=== PATIENT | male | born 1965 ===

== ENCOUNTER 2017-01-25 14:29 | Inpatient (IN) ==
[2017-01-25] MEDS ORDERED: ONDANSETRON 4 MG/2 ML VIAL IV PRN (17:57)
[2017-01-25 18:27] LABS: Basophils % 0.3 % (0.0-0.8); Eosinophils % 0.5 % (0.00-10.9); Hematocrit 44.7 VOL% (42.0-52.0); Hemoglobin 16.2 GM/DL (14.0-18.0); Immature Granulocytes % 0.3 %; Immature Granulocytes Absolute 0.02 #; Lymphocytes # 2.8 10*3/uL (1.4-4.0); Lymphocytes % 36.3 % (21.2-54.2); Mean Corpuscular HGB Conc 36.2 GM/DL (32-36); Mean Corpuscular Hemoglobin 34 PG (27-34); Mean Corpuscular Volume 92.9 FL (87-102); Mean Platelet Volume 12.8 FL (9.6-12.0); Monocytes # 1.3 10*3/uL (0.11-0.8); Monocytes % 16.8 % (1.7-12.7); Neutrophils # 3.5 10*3/uL (1.4-7.4); Neutrophils % 45.8 % (38.7-73.9); Red Blood Count 4.81 MC/CUMM (3.8-5.5); Red Cell Distribution Width 14.8 % (9.3-17.3); White Blood Count 7.6 T/CUMM (4-12)
[2017-01-25] MEDS ORDERED: ACETAMINOPHEN 325 MG TABLET PO PRN (18:46)
[2017-01-25 18:54] LABS: Albumin 2.7 G/DL (3.4-5.0); Bilirubin,Total 1.6 MG/DL (0.2-1.0); Calcium 7.7 MG/DL (8.5-10.1); Osmolality,Calculated 287.1 MOS/KG (273-304); Potassium 4.1 MMOL/L (3.5-5.1); Total Protein 6.5 G/DL (6.4-8.3)
[2017-01-25 18:59] LABS: Platelet Count 86 T/CUMM (130-400)
[2017-01-25] MEDS: RIFAXIMIN 550 MG TABLET PO SCH (20:36)
[2017-01-25] MEDS: LACTULOSE 20 GM/30 ML UDCUP PO SCH (20:36)
[2017-01-25] MEDS: SPIRONOLACTONE 25 MG TABLET PO SCH (20:37)
[2017-01-26] MEDS ORDERED: DICYCLOMINE 10 MG CAPSULE PO PRN (01:35)
[2017-01-26 04:20] LABS: Basophils % 0.5 % (0.0-0.8); Eosinophils # 0.1 10*3/uL (0.0-0.87); Eosinophils % 1.2 % (0.00-10.9); Hematocrit 41.4 VOL% (42.0-52.0); Hemoglobin 14.6 GM/DL (14.0-18.0); Immature Granulocytes % 0.4 %; Immature Granulocytes Absolute 0.03 #; Lymphocytes # 2.5 10*3/uL (1.4-4.0); Lymphocytes % 33.8 % (21.2-54.2); Mean Corpuscular HGB Conc 35.3 GM/DL (32-36); Mean Corpuscular Hemoglobin 34 PG (27-34); Mean Corpuscular Volume 96.1 FL (87-102); Mean Platelet Volume 13.3 FL (9.6-12.0); Monocytes # 1.2 10*3/uL (0.11-0.8); Monocytes % 16.8 % (1.7-12.7); Neutrophils # 3.5 10*3/uL (1.4-7.4); Neutrophils % 47.3 % (38.7-73.9); Platelet Count 47 T/CUMM (130-400); Red Blood Count 4.31 MC/CUMM (3.8-5.5); Red Cell Distribution Width 14.6 % (9.3-17.3); White Blood Count 7.4 T/CUMM (4-12)
[2017-01-26 04:58] LABS: Band Neutrophils 1 % (0-10); Lymphocytes 28 % (20-55); Macrocytosis Slight; Segmented Neutrophils 56 % (50-85); Total Cells Counted 100
[2017-01-26 07:04] LABS: Albumin 2.3 G/DL (3.4-5.0); Bilirubin,Total 1.2 MG/DL (0.2-1.0); Calcium 7.7 MG/DL (8.5-10.1); Potassium 4.4 MMOL/L (3.5-5.1); Total Protein 5.6 G/DL (6.4-8.3)
[2017-01-26] MEDS ORDERED: PANTOPRAZOLE 40 MG VIAL IV SCH (09:00)
[2017-01-26] MEDS: LACTULOSE 20 GM/30 ML UDCUP PO SCH (09:37)
[2017-01-26] MEDS: RIFAXIMIN 550 MG TABLET PO SCH ×3 (09:37→23:06)
[2017-01-26] MEDS: FUROSEMIDE 20 MG TABLET PO SCH (09:37)
[2017-01-26] MEDS: THIAMINE 100 MG TABLET PO SCH (09:37)
[2017-01-26] MEDS: SPIRONOLACTONE 25 MG TABLET PO SCH ×3 (09:37→23:06)
[2017-01-26 11:14] LABS: Hematocrit 40.5 VOL% (42.0-52.0); Hemoglobin 14.3 GM/DL (14.0-18.0)
[2017-01-26 11:24] LABS: INR 1.2; PT Patient Result 12.6 SECS; Partial Thromboplastin Time 26.4 SECS (0-40)
[2017-01-26] MEDS ORDERED: SUCCINYLCHOLINE 200 MG/10 ML VIAL ONE (13:01)
[2017-01-26] MEDS ORDERED: PROPOFOL 200 MG/20 ML VIAL IV ONE (13:01)
[2017-01-26] MEDS ORDERED: LIDOCAINE 2% 5 ML VIAL ONE (13:01)
[2017-01-26] MEDS ORDERED: PHENYLEPHRINE 1 MG/10 ML SYRINGE IV ONE (13:01)
[2017-01-26] MEDS ORDERED: fentaNYL 100 MCG/2 ML VIAL ONE (13:02)
[2017-01-26] MEDS ORDERED: ACETAMINOPHEN 500 MG TABLET PO PRN (13:30)
[2017-01-26] MEDS: LACTULOSE 20 GM/30 ML UDCUP NG SCH ×4 (15:06→23:06)
[2017-01-26] MEDS ORDERED: niCARdipine INJ 25 MG in SODIUM CHLORIDE 0.9% 240 ML IV SCH (17:00)
[2017-01-26] MEDS: LORazepam 2 MG/1 ML VIAL IV PRN ×2 (17:28→21:38)
[2017-01-26 18:44] LABS: Apearance,Urine CLEAR (Clear); Bilirubin,Urine Negative (Negative); Blood, Urine Negative (Negative); Glucose,Urine (UA) Negative (Negative); Hyaline Casts,Urine 6 /LPF (0-3); Ketones,Urine Negative (Negative); Mucus,Urine Occasional /LPF (Occasional); Nitrite,Urine Negative (Negative); Protein,Urine Negative; RBC,Urine 1 /HPF (0-4); Squamous Epithelial Cell,Urine Occasional /HPF (0-10); Urine Color Yellow (Yellow); Urine Specific Gravity 1.028 (1.001-1.035); Urine Urobilinogen < 2.0 EU/DL (0.2-1.0); WBC,Urine 1 /HPF (0-6)
[2017-01-26] MEDS: METOCLOPRAMIDE 10 MG/2 ML VIAL IV SCH (18:56)
[2017-01-26] MEDS: PANTOPRAZOLE 40 MG VIAL IV SCH (21:38)
[2017-01-26] MEDS: niCARdipine INJ 50 MG in SODIUM CHLORIDE 0.9% 480 ML IV SCH (22:47)
[2017-01-26] MEDS ORDERED: niCARdipine INJ 50 MG in SODIUM CHLORIDE 0.9% 500 ML IV SCH (23:00)
[2017-01-27] MEDS: METOCLOPRAMIDE 10 MG/2 ML VIAL IV SCH ×4 (00:15→18:21)
[2017-01-27] MEDS: LACTULOSE 20 GM/30 ML UDCUP NG SCH ×6 (02:08→22:42)
[2017-01-27] MEDS: LORazepam 2 MG/1 ML VIAL IV PRN ×3 (02:34→19:40)
[2017-01-27 05:13] LABS: Basophils % 0.4 % (0.0-0.8); Eosinophils # 0.1 10*3/uL (0.0-0.87); Eosinophils % 0.5 % (0.00-10.9); Hemoglobin 12.5 GM/DL (14.0-18.0); Immature Granulocytes % 0.5 %; Immature Granulocytes Absolute 0.06 #; Lymphocytes % 18.3 % (21.2-54.2); Mean Corpuscular HGB Conc 35.7 GM/DL (32-36); Mean Corpuscular Hemoglobin 34 PG (27-34); Mean Corpuscular Volume 94.6 FL (87-102); Monocytes # 2.3 10*3/uL (0.11-0.8); Neutrophils # 6.5 10*3/uL (1.4-7.4); Neutrophils % 59.3 % (38.7-73.9); Red Cell Distribution Width 14.9 % (9.3-17.3)
[2017-01-27 05:27] LABS: Platelet Count 35 T/CUMM (130-400)
[2017-01-27 05:51] LABS: Calcium 7.8 MG/DL (8.5-10.1); Magnesium 1.6 MG/DL (1.8-2.4); Osmolality,Calculated 299.6 MOS/KG (273-304); Potassium 4.2 MMOL/L (3.5-5.1)
[2017-01-27 06:09] LABS: Band Neutrophils 8 % (0-10); Lymphocytes 25 % (20-55); Metamyelocytes 2 %; Myelocytes 6 %; Segmented Neutrophils 57 % (50-85); Total Cells Counted 100
[2017-01-27 06:10] LABS: Anisocytosis 1+; Ovalocytes Few
[2017-01-27 06:11] LABS: Platelet Estimate Decreased
[2017-01-27] MEDS: niCARdipine INJ 50 MG in SODIUM CHLORIDE 0.9% 480 ML IV SCH ×2 (09:35→20:21)
[2017-01-27] MEDS: PANTOPRAZOLE 40 MG VIAL IV SCH ×2 (09:36→22:54)
[2017-01-27] MEDS: RIFAXIMIN 550 MG TABLET PO SCH ×2 (09:37→22:42)
[2017-01-27] MEDS: SPIRONOLACTONE 25 MG TABLET PO SCH ×2 (09:37→22:54)
[2017-01-27] MEDS: THIAMINE 100 MG TABLET PO SCH (09:37)
[2017-01-27] MEDS: FUROSEMIDE 20 MG TABLET PO SCH (09:37)
[2017-01-27] MEDS ORDERED: MAGNESIUM SULF RIDER 4 GM in PREMIX 1 EACH IV ONE (09:47)
[2017-01-27] MEDS: amLODIPine 5 MG TABLET PO SCH (11:31)
[2017-01-28] MEDS: METOCLOPRAMIDE 10 MG/2 ML VIAL IV SCH ×5 (01:13→23:36)
[2017-01-28] MEDS: LORazepam 2 MG/1 ML VIAL IV PRN ×4 (02:18→17:28)
[2017-01-28] MEDS: LACTULOSE 20 GM/30 ML UDCUP NG SCH ×6 (02:21→21:50)
[2017-01-28] MEDS: niCARdipine INJ 50 MG in SODIUM CHLORIDE 0.9% 480 ML IV SCH ×3 (02:29→22:03)
[2017-01-28] MEDS ORDERED: SODIUM CHLORIDE 0.9% 500 ML IV ONE (03:03)
[2017-01-28 06:08] LABS: Basophils # 0.1 10*3/uL (0.0-0.2); Basophils % 0.6 % (0.0-0.8); Eosinophils # 0.1 10*3/uL (0.0-0.87); Hematocrit 33.7 VOL% (42.0-52.0); Hemoglobin 12.1 GM/DL (14.0-18.0); Immature Granulocytes % 0.4 %; Immature Granulocytes Absolute 0.04 #; Lymphocytes % 18.6 % (21.2-54.2); Mean Corpuscular HGB Conc 35.9 GM/DL (32-36); Mean Corpuscular Hemoglobin 35 PG (27-34); Mean Corpuscular Volume 96.3 FL (87-102); Mean Platelet Volume 13.1 FL (9.6-12.0); Monocytes # 1.9 10*3/uL (0.11-0.8); Monocytes % 17.4 % (1.7-12.7); Neutrophils # 6.8 10*3/uL (1.4-7.4); Platelet Count 78 T/CUMM (130-400)
[2017-01-28 06:45] LABS: Calcium 7.4 MG/DL (8.5-10.1); Osmolality,Calculated 310.9 MOS/KG (273-304); Potassium 3.8 MMOL/L (3.5-5.1)
[2017-01-28 06:53] LABS: Band Neutrophils 9 % (0-10); Lymphocytes 13 % (20-55); Myelocytes 2 %; Segmented Neutrophils 68 % (50-85); Total Cells Counted 100
[2017-01-28 06:54] LABS: Anisocytosis 1+; Platelet Estimate Decreased
[2017-01-28] MEDS: SPIRONOLACTONE 25 MG TABLET PO SCH ×2 (08:21→20:21)
[2017-01-28] MEDS: RIFAXIMIN 550 MG TABLET PO SCH ×2 (08:21→20:20)
[2017-01-28] MEDS: PANTOPRAZOLE 40 MG VIAL IV SCH ×2 (08:21→20:20)
[2017-01-28] MEDS: amLODIPine 5 MG TABLET PO SCH (08:21)
[2017-01-28] MEDS: THIAMINE 100 MG TABLET PO SCH (08:21)
[2017-01-28] MEDS: FUROSEMIDE 20 MG TABLET PO SCH (08:21)
[2017-01-28] MEDS: DEXTROSE 5% 1,000 ML IV SCH (14:24)
[2017-01-28] MEDS: PIPERACILLIN/TAZOBACTAM 3,375 MG in SODIUM CHLORIDE 0.9% 100 ML IV SCH ×2 (16:30→23:33)
[2017-01-29] MEDS: LACTULOSE 20 GM/30 ML UDCUP NG SCH ×6 (02:50→21:26)
[2017-01-29] MEDS: DEXTROSE 5% 1,000 ML IV SCH ×3 (02:51→21:26)
[2017-01-29 05:20] LABS: Basophils % 0.5 % (0.0-0.8); Eosinophils # 0.3 10*3/uL (0.0-0.87); Eosinophils % 3.8 % (0.00-10.9); Hematocrit 32.8 VOL% (42.0-52.0); Hemoglobin 11.3 GM/DL (14.0-18.0); Immature Granulocytes % 0.3 %; Immature Granulocytes Absolute 0.02 #; Lymphocytes # 2.2 10*3/uL (1.4-4.0); Lymphocytes % 28.2 % (21.2-54.2); Mean Corpuscular HGB Conc 34.5 GM/DL (32-36); Mean Corpuscular Hemoglobin 34 PG (27-34); Mean Corpuscular Volume 99.1 FL (87-102); Monocytes # 1.4 10*3/uL (0.11-0.8); Monocytes % 18.1 % (1.7-12.7); Neutrophils # 3.9 10*3/uL (1.4-7.4); Neutrophils % 49.1 % (38.7-73.9); Platelet Count 71 T/CUMM (130-400); Red Blood Count 3.31 MC/CUMM (3.8-5.5); Red Cell Distribution Width 15.2 % (9.3-17.3); White Blood Count 7.9 T/CUMM (4-12)
[2017-01-29] MEDS: METOCLOPRAMIDE 10 MG/2 ML VIAL IV SCH ×4 (05:43→23:45)
[2017-01-29 05:54] LABS: Eosinophils 1 % (0-10); Lymphocytes 24 % (20-55); Platelet Estimate Decreased; Segmented Neutrophils 59 % (50-85); Total Cells Counted 100
[2017-01-29 05:55] LABS: Albumin 2.6 G/DL (3.4-5.0); Bilirubin,Total 2.5 MG/DL (0.2-1.0); Calcium 7.5 MG/DL (8.5-10.1); Osmolality,Calculated 310.7 MOS/KG (273-304); Potassium 3.6 MMOL/L (3.5-5.1); Total Protein 5.5 G/DL (6.4-8.3)
[2017-01-29] MEDS: PIPERACILLIN/TAZOBACTAM 3,375 MG in SODIUM CHLORIDE 0.9% 100 ML IV SCH ×3 (08:03→22:35)
[2017-01-29] MEDS: PANTOPRAZOLE 40 MG VIAL IV SCH ×2 (08:07→21:26)
[2017-01-29] MEDS: amLODIPine 5 MG TABLET PO SCH (08:08)
[2017-01-29] MEDS: THIAMINE 100 MG TABLET PO SCH (08:08)
[2017-01-29] MEDS: SPIRONOLACTONE 25 MG TABLET PO SCH ×2 (08:08→21:26)
[2017-01-29] MEDS: RIFAXIMIN 550 MG TABLET PO SCH ×2 (08:08→21:26)
[2017-01-29] MEDS ORDERED: GLUCAGON 1 MG VIAL IM PRN (08:15)
[2017-01-29] MEDS ORDERED: DEXTROSE 50% 25 GM/50 ML VIAL IV PRN (08:15)
[2017-01-29] MEDS: FUROSEMIDE 20 MG TABLET PO SCH (08:30)
[2017-01-29] MEDS: niCARdipine INJ 50 MG in SODIUM CHLORIDE 0.9% 480 ML IV SCH (22:36)
[2017-01-30] MEDS: LACTULOSE 20 GM/30 ML UDCUP NG SCH ×6 (02:17→21:09)
[2017-01-30] MEDS: LORazepam 2 MG/1 ML VIAL IV PRN ×2 (04:34→21:09)
[2017-01-30 05:10] LABS: Basophils % 0.4 % (0.0-0.8); Eosinophils # 0.3 10*3/uL (0.0-0.87); Eosinophils % 3.4 % (0.00-10.9); Hematocrit 30.8 VOL% (42.0-52.0); Hemoglobin 10.9 GM/DL (14.0-18.0); Immature Granulocytes % 0.8 %; Immature Granulocytes Absolute 0.06 #; Lymphocytes # 2.5 10*3/uL (1.4-4.0); Lymphocytes % 30.9 % (21.2-54.2); Mean Corpuscular HGB Conc 35.4 GM/DL (32-36); Mean Corpuscular Hemoglobin 34 PG (27-34); Mean Platelet Volume 12.7 FL (9.6-12.0); Monocytes # 1.3 10*3/uL (0.11-0.8); Monocytes % 16.7 % (1.7-12.7); Neutrophils # 3.8 10*3/uL (1.4-7.4); Neutrophils % 47.8 % (38.7-73.9); Platelet Count 76 T/CUMM (130-400); Red Blood Count 3.21 MC/CUMM (3.8-5.5); Red Cell Distribution Width 14.6 % (9.3-17.3)
[2017-01-30 05:41] LABS: Albumin 2.6 G/DL (3.4-5.0); Bilirubin,Total 1.5 MG/DL (0.2-1.0); Calcium 7.3 MG/DL (8.5-10.1); Magnesium 1.5 MG/DL (1.8-2.4); Potassium 3.1 MMOL/L (3.5-5.1); Total Protein 5.5 G/DL (6.4-8.3)
[2017-01-30 05:49] LABS: Eosinophils 5 % (0-10); Lymphocytes 38 % (20-55); Nucleated Red Blood Cells 1 (0-5); Segmented Neutrophils 47 % (50-85); Total Cells Counted 100
[2017-01-30 05:50] LABS: Platelet Estimate Decreased
[2017-01-30 05:51] LABS: Macrocytosis Slight
[2017-01-30] MEDS: METOCLOPRAMIDE 10 MG/2 ML VIAL IV SCH ×4 (06:05→23:37)
[2017-01-30] MEDS ORDERED: MAGNESIUM SULF RIDER 4 GM in PREMIX 1 EACH IV ONE (08:11)
[2017-01-30] MEDS: PIPERACILLIN/TAZOBACTAM 3,375 MG in SODIUM CHLORIDE 0.9% 100 ML IV SCH ×3 (08:17→23:37)
[2017-01-30] MEDS: amLODIPine 5 MG TABLET PO SCH (08:17)
[2017-01-30] MEDS: THIAMINE 100 MG TABLET PO SCH (08:17)
[2017-01-30] MEDS: DEXTROSE 5% 1,000 ML IV SCH ×2 (08:17→10:14)
[2017-01-30] MEDS: RIFAXIMIN 550 MG TABLET PO SCH ×2 (08:17→21:09)
[2017-01-30] MEDS: FUROSEMIDE 20 MG TABLET PO SCH (08:17)
[2017-01-30] MEDS: PANTOPRAZOLE 40 MG VIAL IV SCH ×2 (08:18→21:09)
[2017-01-30] MEDS: SPIRONOLACTONE 25 MG TABLET PO SCH ×2 (08:18→21:09)
[2017-01-30] MEDS ORDERED: SODIUM CHLORIDE 0.9% IV ONE (09:00)
[2017-01-30] MEDS ORDERED: POTASSIUM CHLORIDE IV ONE (09:00)
[2017-01-31] MEDS: LACTULOSE 20 GM/30 ML UDCUP NG SCH ×6 (01:47→22:42)
[2017-01-31] MEDS: LORazepam 2 MG/1 ML VIAL IV PRN (03:26)
[2017-01-31 04:49] LABS: Basophils % 0.6 % (0.0-0.8); Eosinophils # 0.3 10*3/uL (0.0-0.87); Eosinophils % 3.6 % (0.00-10.9); Hematocrit 30.2 VOL% (42.0-52.0); Hemoglobin 11.2 GM/DL (14.0-18.0); Immature Granulocytes % 0.6 %; Immature Granulocytes Absolute 0.04 #; Lymphocytes # 2.4 10*3/uL (1.4-4.0); Lymphocytes % 34.6 % (21.2-54.2); Mean Corpuscular HGB Conc 37.1 GM/DL (32-36); Mean Corpuscular Hemoglobin 34 PG (27-34); Mean Corpuscular Volume 92.1 FL (87-102); Mean Platelet Volume 12.9 FL (9.6-12.0); Monocytes # 1.1 10*3/uL (0.11-0.8); Neutrophils # 3.1 10*3/uL (1.4-7.4); Neutrophils % 44.6 % (38.7-73.9); Platelet Count 82 T/CUMM (130-400); Red Blood Count 3.28 MC/CUMM (3.8-5.5); Red Cell Distribution Width 14.8 % (9.3-17.3); White Blood Count 6.9 T/CUMM (4-12)
[2017-01-31 05:01] LABS: Calcium 7.3 MG/DL (8.5-10.1); Potassium 3.4 MMOL/L (3.5-5.1)
[2017-01-31 05:59] LABS: Band Neutrophils 1 % (0-10); Eosinophils 5 % (0-10); Lymphocytes 32 % (20-55); Segmented Neutrophils 48 % (50-85); Total Cells Counted 100
[2017-01-31 06:04] LABS: Platelet Estimate Decreased
[2017-01-31] MEDS: METOCLOPRAMIDE 10 MG/2 ML VIAL IV SCH ×3 (06:07→17:40)
[2017-01-31] MEDS: PIPERACILLIN/TAZOBACTAM 3,375 MG in SODIUM CHLORIDE 0.9% 100 ML IV SCH ×2 (07:27→15:40)
[2017-01-31] MEDS: PANTOPRAZOLE 40 MG VIAL IV SCH ×2 (09:01→20:27)
[2017-01-31] MEDS: THIAMINE 100 MG TABLET PO SCH (09:01)
[2017-01-31] MEDS: RIFAXIMIN 550 MG TABLET PO SCH ×2 (09:01→20:28)
[2017-01-31] MEDS: FUROSEMIDE 20 MG TABLET PO SCH (09:01)
[2017-01-31] MEDS: SPIRONOLACTONE 25 MG TABLET PO SCH ×2 (09:01→20:27)
[2017-01-31] MEDS: amLODIPine 5 MG TABLET PO SCH (09:01)
[2017-02-01] MEDS: METOCLOPRAMIDE 10 MG/2 ML VIAL IV SCH ×4 (00:39→16:59)
[2017-02-01] MEDS: PIPERACILLIN/TAZOBACTAM 3,375 MG in SODIUM CHLORIDE 0.9% 100 ML IV SCH ×4 (00:40→23:44)
[2017-02-01] MEDS: LACTULOSE 20 GM/30 ML UDCUP NG SCH ×6 (02:27→22:24)
[2017-02-01] MEDS: amLODIPine 5 MG TABLET PO SCH (09:37)
[2017-02-01] MEDS: PANTOPRAZOLE 40 MG VIAL IV SCH ×2 (09:38→22:24)
[2017-02-01] MEDS: THIAMINE 100 MG TABLET PO SCH (09:38)
[2017-02-01] MEDS: FUROSEMIDE 20 MG TABLET PO SCH (09:38)
[2017-02-01] MEDS: SPIRONOLACTONE 25 MG TABLET PO SCH ×2 (09:38→22:24)
[2017-02-01] MEDS: RIFAXIMIN 550 MG TABLET PO SCH ×2 (09:38→22:24)
[2017-02-01 18:45] LABS: Apearance,Urine Slightly Hazy (Clear); Bilirubin,Urine Negative (Negative); Blood, Urine Negative (Negative); Calcium Oxalate Crystals,Urine Occasional /HPF (Few); Glucose,Urine (UA) Negative (Negative); Ketones,Urine 5 mg/dL (Negative); Mucus,Urine Occasional /LPF (Occasional); Nitrite,Urine Negative (Negative); Protein,Urine Negative; RBC,Urine 5 /HPF (0-4); Squamous Epithelial Cell,Urine Occasional /HPF (0-10); Urine Urobilinogen < 2.0 EU/DL (0.2-1.0); WBC,Urine 3 /HPF (0-6)
[2017-02-01 18:46] LABS: Urine Color Yellow (Yellow)
[2017-02-02] MEDS: METOCLOPRAMIDE 10 MG/2 ML VIAL IV SCH ×4 (00:19→19:21)
[2017-02-02] MEDS: LACTULOSE 20 GM/30 ML UDCUP NG SCH ×5 (02:50→19:21)
[2017-02-02 07:08] LABS: Basophils # 0.1 10*3/uL (0.0-0.2); Basophils % 0.6 % (0.0-0.8); Eosinophils # 0.4 10*3/uL (0.0-0.87); Eosinophils % 4.9 % (0.00-10.9); Hematocrit 32.6 VOL% (42.0-52.0); Hemoglobin 11.8 GM/DL (14.0-18.0); Immature Granulocytes % 0.8 %; Immature Granulocytes Absolute 0.06 #; Lymphocytes # 2.9 10*3/uL (1.4-4.0); Lymphocytes % 36.7 % (21.2-54.2); Mean Corpuscular HGB Conc 36.2 GM/DL (32-36); Mean Corpuscular Hemoglobin 34 PG (27-34); Mean Corpuscular Volume 93.1 FL (87-102); Mean Platelet Volume 12.4 FL (9.6-12.0); Monocytes # 1.4 10*3/uL (0.11-0.8); Monocytes % 17.8 % (1.7-12.7); NRBC # 0.07 10*3/uL; Neutrophils # 3.1 10*3/uL (1.4-7.4); Neutrophils % 39.2 % (38.7-73.9); Platelet Count 73 T/CUMM (130-400); Red Cell Distribution Width 15.4 % (9.3-17.3); White Blood Count 7.8 T/CUMM (4-12)
[2017-02-02 08:03] LABS: Eosinophils 7 % (0-10); Lymphocytes 35 % (20-55); Platelet Estimate Decreased; Segmented Neutrophils 34 % (50-85); Total Cells Counted 100
[2017-02-02 08:04] LABS: Giant Platelets Few
[2017-02-02 08:28] LABS: Calcium 7.4 MG/DL (8.5-10.1); Magnesium 1.7 MG/DL (1.8-2.4); Osmolality,Calculated 280.1 MOS/KG (273-304); Potassium 3.7 MMOL/L (3.5-5.1)
[2017-02-02] MEDS ORDERED: MAGNESIUM SULF RIDER 2 GM in PREMIX 1 EACH IV ONE (08:33)
[2017-02-02] MEDS: SPIRONOLACTONE 25 MG TABLET PO SCH (09:03)
[2017-02-02] MEDS: amLODIPine 5 MG TABLET PO SCH (09:03)
[2017-02-02] MEDS: RIFAXIMIN 550 MG TABLET PO SCH (09:03)
[2017-02-02] MEDS: THIAMINE 100 MG TABLET PO SCH (09:03)
[2017-02-02] MEDS: FUROSEMIDE 20 MG TABLET PO SCH (09:04)
[2017-02-02] MEDS: PANTOPRAZOLE 40 MG VIAL IV SCH (10:03)
[2017-02-02] MEDS: PIPERACILLIN/TAZOBACTAM 3,375 MG in SODIUM CHLORIDE 0.9% 100 ML IV SCH ×2 (11:39→16:42)
[2017-02-02 17:01] VITALS: BP 119/72
== END 2017-02-02 19:50 | disposition home or self-care (01) | DRG 279 ==
LOC: N.TELES 17:36 → N.ICU 19:11 → N.5E 01-31 14:46
PROVIDERS: ADMIT Internal Medicine; ATTEND Internal Medicine